=== PATIENT | female | born 1980 | race African-American/Black ===

== ENCOUNTER 2018-07-09 09:15 | Inpatient (IN) | payer OTHER ==
[2018-07-09] MEDS ORDERED: ELECTROLYTE-148 SOLN 500 ML IV SCH (10:46)
[2018-07-09] MEDS ORDERED: ELECTROLYTE-148 SOLN 1,000 ML IV SCH (11:15)
[2018-07-09 11:20] LABS: BASO % 0.4 % (0-2.0); EOS % 1.2 % (0-4.5); HEMATOCRIT 35.1 % (32.4-45.2); HEMOGLOBIN 11.5 GM/dL (10.7-15.3); LYMPH % 28.3 % (8-40); MCH 26.2 pg (25.7-33.7); MCHC 32.8 g/dl (32.0-36.0); MEAN CELL VOLUME 79.9 fl (80-96); MEAN PLT VOLUME 9.4 fl (7.5-11.1); MONO % 7.3 % (3.8-10.2); NEUT % 62.8 % (42.8-82.8); PLATELET COUNT 212 K/MM3 (134-434); RDW 21.7 % (11.6-15.6)
[2018-07-09 11:32] LABS: ANION GAP 9 MMOL/L (8-16); BLOOD UREA NITROGEN 10 mg/dL (7-18); CALCIUM 8.8 mg/dL (8.5-10.1); CHLORIDE 108 mmol/L (98-107); CO2 21 mmol/L (21-32); CREATININE 0.6 mg/dL (0.55-1.3); GLUCOSE,RANDOM 76 mg/dL (74-106); POTASSIUM 4.2 mmol/L (3.5-5.1); SODIUM 138 mmol/L (136-145)
[2018-07-09 11:40] LABS: INR 0.9 (0.83-1.09); PROTHROMBIN TIME (PATIENT) 10.6 SEC (9.7-13.0)
[2018-07-09 11:43] LABS: ACTIVATED PTT 24.9 SECONDS (25.2-36.5)
[2018-07-09 12:15] VITALS: BMI 34.8
[2018-07-09] MEDS ORDERED: CITRIC ACID/SODIUM CITRATE 30 ML UNIT-DOSE CUP PO ONE ×2 (14:45→17:07)
[2018-07-09 15:01] LABS: ANISOCYTOSIS 1+; PLATELET ESTIMATE ADEQUATE
[2018-07-09] MEDS ORDERED: ceFAZolin SODIUM 1 GM VIAL ONE (15:40)
[2018-07-09] MEDS ORDERED: morphine SULFATE/Preservative Free 0.5 MG/ML (1cc Syringe) ONE (15:40)
[2018-07-09] MEDS ORDERED: ePHEDrine SULFATE 50 MG/1 ML AMPULE ONE (16:08)
[2018-07-09] MEDS ORDERED: OXYTOCIN 10 UNITS/ML VIAL ONE (16:20)
[2018-07-09] MEDS ORDERED: ONDANSETRON 4 MG/2 ML VIAL IVPUSH PRN (16:45)
[2018-07-09] MEDS ORDERED: METHYLERGONOVINE MALEATE 0.2 MG/1 ML AMP IM PRN (17:09)
[2018-07-09] MEDS ORDERED: KETOROLAC TROMETHAMINE 30 MG/1 ML VIAL ONE (17:10)
--- NOTE | 2018-07-09 17:13 | OP ---
Operative Note - Note: Operative Date: 07/09/18 Pre-Operative Diagnosis: Oligohydramnios / 36 weeks gestation / IUGR Operation: Repeat Low Transverse Findings: SGA baby in ROT position Post-Operative Diagnosis: Same as Pre-op Surgeon: Christine Hernandez Nfl Player: Erick Crowder Anesthesia: Spinal Specimens Removed: Placenta Estimated Blood Loss (mls): 600
[2018-07-09] MEDS ORDERED: DEXTROSE 5%-LACTATED RINGERS 1,000 ML IV SCH (17:15)
--- NOTE | 2018-07-09 17:17 | SURG ---
Surgery [employer] Officer Note [employer] Officer: Erick Crowder PA-C Date of Service: 07/09/18 Diagnosis: Oligohydramnios / 36 weeks gestation / IUGR Procedure: Repeat Low Transverse I was present for the entirety of the operative procedure. For further detail, please refer to operative report. Visit type - Case Type Case Type: Scheduled - New patient This patient is new to me today: Yes Date on this admission: 07/09/18
--- NOTE | 2018-07-09 17:19 | HP ---
Past Medical History - Admission Chief Complaint: Low amniotic fluid History of Present Illness: 37 yo @ 36 weeks gestation, EDC 08/01/[address] Fang office for delivery due to oligohydramnios and IUGR. She had one previous . Decision made for repeat . History Source: Patient Limitations to Obtaining History: No Limitations - Past Medical History ...: 3 ...Para: 1 ...Term: 1 ...: 0 ...Spon : 1 ...Induced : 0 ...Multiple Gestation: 0 ...EDC by Sono: 08/01/18 - Past Surgical History Past Surgical History: Yes: Hx Myomectomy: No Hx Transabdominal Cerclage: No - Smoking History Smoking history: Never smoked Have you smoked in the past 12 months: No - Alcohol/Substance Use Hx Alcohol Use: No - Social History Usual Living Arrangement: Yes: With Significant Other History of Recent Travel: No Home Medications - Allergies Allergies/Adverse Reactions: Allergies Allergy/AdvReac Type Severity Reaction Status Date / Time No Known Allergies Allergy Verified 07/09/18 09:44 - Home Medications Home Medications: Ambulatory Orders Ferrous Sulfate [Iron] 325 mg PO DAILY 07/09/18 Pnv No.95/Ferrous Fum/Folic AC [ Formula] 1 each PO DAILY 07/09/18 Family Disease History - Family Disease History Family History: Unremarkable Review of Systems - Review of Systems Constitutional: reports: No Symptoms Eyes: reports: No Symptoms HENT: reports: No Symptoms Neck: reports: No Symptoms Cardiovascular: reports: No Symptoms Respiratory: reports: No Symptoms Gastrointestinal: reports: No Symptoms Genitourinary: reports: No Symptoms Breasts: reports: No Symptoms Reported Neurological: reports: No Symptoms Endocrine: reports: No Symptoms Psychiatric: reports: No Symptoms Pain Intensity: 0 Physical Exam - Maternity Vital Signs: Vital Signs Temperature 98.2 F 07/09/18 14:00 Pulse Rate 90 07/09/18 14:00 Respiratory Rate 18 07/09/18 14:00 Blood Pressure 128/76 07/09/18 14:00 O2 Sat by Pulse Oximetry (%) Constitutional: Yes: Well Nourished Eyes: Yes: Conjunctiva Clear HENT: Yes: Atraumatic Neck: Yes: Supple Cardiovascular: Yes: Regular Rate and Rhythm Lungs: Clear to auscultation - Abdominal Exam/OB Number of Fetuses: Single Presentation: Vertex - Physical Exam ...Motor Strength: WNL Psychiatric: Yes: Alert, Oriented - Labs Lab Results: CBC, BMP 07/09/18 10:55 07/09/18 10:55 Problem List - Problems (1) 36 weeks gestation of Code(s): Z3A.36 - 36 WEEKS GESTATION OF (2) Oligohydramnios antepartum Code(s): O41.00X0 - OLIGOHYDRAMNIOS, UNSP TRIMESTER, NOT APPLICABLE OR UNSP (3) IUGR (intrauterine growth restriction) affecting care of mother Code(s): O36.5990 - MATERN CARE FOR OTH OR SUSP POOR FETL GRTH, UNSP TRI, UNSP Qualifiers: Fetus number: single or unspecified fetus Trimester: third trimester Qualified Code(s): O36.5930 - Maternal care for other known or suspected poor growth, third trimester, not applicable or unspecified Assessment/Plan 36 weeks gestation Oligohydramnios IUGR Admit for repeat as recommended by MFM ( Dr. Fang ) Consent signed Anesthesia to see patient
[2018-07-09 17:45] LABS: ARTERIAL BLD GAS O2 SATURATION 9.8 % (90-98.9); ARTERIAL BLOOD GAS BASE EXCESS -14.4 meq/l (-2-2); ARTERIAL BLOOD GAS PCO2 70.1 mmHg (35-45); ARTERIAL BLOOD GAS PO2 14.3 mmHg (80-100); ARTERIAL BLOOD GAS pH 7.05 (7.35-7.45); VENOUS PC02 60.6 mmHg (38-52); VENOUS PH 7.23 (7.32-7.42); VENOUS PO2 15.8 mmHg (28-48)
[2018-07-09] MEDS: OXYTOCIN 20 UNITS in 0.9% NS 20 UNIT/1,000 ML INFUS.BAG IV SCH (21:01)
[2018-07-10] MEDS: OXYTOCIN 20 UNITS in 0.9% NS 20 UNIT/1,000 ML INFUS.BAG IV SCH ×2 (04:45→17:44)
[2018-07-10 09:29] LABS: BASO % 0.3 % (0-2.0); EOS % 0.1 % (0-4.5); HEMATOCRIT 28.7 % (32.4-45.2); HEMOGLOBIN 8.9 GM/dL (10.7-15.3); MCH 25.5 pg (25.7-33.7); MEAN CELL VOLUME 82.2 fl (80-96); MEAN PLT VOLUME 9.4 fl (7.5-11.1); MONO % 7.2 % (3.8-10.2); NEUT % 77.4 % (42.8-82.8); PLATELET COUNT 168 K/MM3 (134-434); RBC 3.49 M/mm3 (3.60-5.2); RDW 21.4 % (11.6-15.6)
[2018-07-10] MEDS ORDERED: DIPHTH,PERTUSS(ACELL),TET 0.5 ML DISP.SYRIN IM ONE (10:00)
--- NOTE | 2018-07-10 10:17 | PN ---
Progress Note (short form) - Note Progress Note: POD #1 - s/p repeat under spinal anesthesia with duramorph. VSS. Pt. doing well, resting comfortably in bed. No complaints. Good pain control. No apparent anesthetic complications noted. Continue current care.
[2018-07-10] MEDS ORDERED: BISACODYL 10 MG SUPP.RECT RC PRN (17:09)
[2018-07-10] MEDS: IBUPROFEN 600 MG TABLET (FP) PO PRN (17:45)
[2018-07-10] MEDS: oxyCODONE HCL 5 MG TABLET PO PRN (17:45)
[2018-07-11] MEDS: oxyCODONE HCL 5 MG TABLET PO PRN ×2 (08:51→16:54)
[2018-07-11] MEDS: IBUPROFEN 600 MG TABLET (FP) PO PRN ×2 (08:51→16:54)
[2018-07-11] MEDS: SIMETHICONE 80 MG TAB.CHEW (FP) PO PRN ×2 (08:52→16:54)
--- NOTE | 2018-07-11 22:17 | PN ---
Progress Note (SOAP) - Subjective Chief Complaint: Pt without comp - Current Medications Current Medications: Active Medications Bisacodyl (Dulcolax Suppository -) 10 mg RC PRN PRN PRN Reason: CONSTIPATION Diphenhydramine HCl (Benadryl Injection -) 25 mg IVPUSH Q4H PRN PRN Reason: Pruritis Last Admin: 07/10/18 06:20 Dose: 25 mg Parenteral Electrolytes (Plasma-Lyte 148 -) 1,000 mls @ 125 mls/hr IV [facility] Last Admin: 07/09/18 12:40 Dose: 125 mls/hr Dextrose/Lactated Ringer's (D5-Lr -) 1,000 mls @ 125 mls/hr IV [facility] Oxytocin/Sodium Chloride (Normal Saline+20 Units Oxytocin -) 20 unit in 1,000 mls @ 125 mls/hr IV [facility] Last Admin: 07/10/18 17:44 Dose: Not Given Ibuprofen (Motrin -) 600 mg PO Q4H PRN PRN Reason: PAIN LEVEL 1 - 3 Last Admin: 07/11/18 16:54 Dose: 600 mg Methylergonovine Maleate (Methergine Injection -) 0.2 mg IM Q4H PRN PRN Reason: Excessive Bleeding (L&D) Ondansetron HCl (Zofran Injection) 4 mg IVPUSH Q4H PRN PRN Reason: NAUSEA Oxycodone HCl (Roxicodone -) 5 mg PO Q4H PRN PRN Reason: PAIN LEVEL 4 - 6 Last Admin: 07/11/18 16:54 Dose: 5 mg Simethicone (Mylicon -) 80 mg PO Q4H PRN PRN Reason: GAS Last Admin: 07/11/18 16:54 Dose: 80 mg - Objective Vital Signs: Vital Signs Temperature 98 F 07/11/18 10:00 Pulse Rate 105 H 07/11/18 10:00 Respiratory Rate 20 07/11/18 10:00 Blood Pressure 127/75 07/11/18 10:00 O2 Sat by Pulse Oximetry (%) 98 07/09/18 18:45 Constitutional: Yes: Well Nourished, No Distress Gastrointestinal: Yes: WNL, Normal Bowel Sounds, Soft ....Post : Yes: Uterus firm, Uterus non-tender Breast(s): Yes: WNL Musculoskeletal: Yes: WNL Extremities: Yes: WNL Edema: No Wound/Incision: Yes: Open to air Labs Lab Results: CBC, BMP 07/10/18 07:45 07/09/18 10:55 Assessment/Plan SP CS POD2 Plan Continue present management
--- NOTE | 2018-07-12 06:57 | DS ---
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 Vital Signs: Vital Signs Temperature 98.3 F 07/11/18 21:00 Pulse Rate 93 H 07/11/18 21:00 Respiratory Rate 20 07/11/18 21:00 Blood Pressure 127/80 07/11/18 21:00 O2 Sat by Pulse Oximetry (%) 98 07/09/18 18:45 Constitutional: Yes: Well Nourished, No Distress Gastrointestinal: Yes: WNL, Normal Bowel Sounds, Soft ....Post : Yes: Uterus firm, Uterus non-tender Breast(s): Yes: WNL Musculoskeletal: Yes: WNL Extremities: Yes: WNL Edema: No Wound/Incision: Yes: Clean/Dry, Open to air, Dressing Dry and Intact Neurological: Yes: WNL, Alert, Oriented Labs: CBC, BMP 07/10/18 07:45 07/09/18 10:55 Delivery - Delivery Type of Anesthesia: Spinal Episiotomy/Laceration: None EBL (cc): 600 Delivery, Single - Stages of Labor Date of Delivery: 07/09/18 Time of Delivery: 16:28 Time Placenta Delivered: 16:29 - Condition of Infant Carpenter Supervisor Wooden Ship/Payroll Human Resources Assistant Present: Yes Name: Jean Marie Perez Infant Gender: Female Weight: 4 lb 11 oz Position: Right, OT Total Hours ROM (Hrs/Mins): 8mins - 1 Minute Total Score: 3 5 Minutes Total Score: 9 - Feeding Plan Initial Plan: Elected not to breastfeed exclusively throughout hospitalization Discharge Summary Reason For Visit: Current Active Problems 36 weeks gestation of (Acute) IUGR (intrauterine growth restriction) affecting care of mother (Acute) Oligohydramnios antepartum (Acute) Procedures: Principal: Section Hospital Course: UNremarkable Condition: Good - Instructions Diet, Activity, Other Instructions: Physical activity Resume your normal everyday activity as tolerated no heavy lifting or exercise until seen by your surgeon. You may walk unlimited jeanette of and climb stairs. You may resume driving the car when you feel safe and comfortable behind the wheel. No sexual activity as instructed. Wound care If you have a bandage, leave it on, and keep dry for 48-72 hours. After that time discard the outer bandage. If they are tapes on the skin under the out of bandage leave them in place. They will peel off in the next 7 to 10 days. Do Not Peel them off. You may shower the day after surgery. If there are tapes present on the skin, you may shower over them. Diet There are no dietary restrictions. Eat healthy, high-fiber foods. Drink 6 to 8 glasses of liquid each day. This will assist in keeping your bowels are regular. Pain management You may take Tylenol or acetaminophen or Ibuprofen (for example, Motrin, Advil etc.) from my pain prescription medication is ordered should be taken as prescribed for moderate to severe pain. Call MD for any of the following: Severe pain not relieved by medication Fever of 101 or higher Excessive bleeding or drainage on dressing Inability to urinate Disposition: HOME - Home Medications Comprehensive Discharge Medication List: Ambulatory Orders Ferrous Sulfate [Iron] 325 mg PO DAILY 07/09/18 Pnv No.95/Ferrous Fum/Folic AC [ Formula] 1 each PO DAILY 07/09/18
[2018-07-12 07:25] LABS: BASO % 0.7 % (0-2.0); EOS % 2.1 % (0-4.5); HEMATOCRIT 23.7 % (32.4-45.2); HEMOGLOBIN 7.5 GM/dL (10.7-15.3); LYMPH % 18.9 % (8-40); MCH 25.6 pg (25.7-33.7); MCHC 31.7 g/dl (32.0-36.0); MEAN CELL VOLUME 80.8 fl (80-96); MEAN PLT VOLUME 9.1 fl (7.5-11.1); MONO % 7.6 % (3.8-10.2); NEUT % 70.7 % (42.8-82.8); PLATELET COUNT 164 K/MM3 (134-434); RBC 2.94 M/mm3 (3.60-5.2); RDW 21.1 % (11.6-15.6); WHITE BLOOD COUNT 8.3 K/mm3 (4.0-10.0)
[2018-07-12] MEDS: IBUPROFEN 600 MG TABLET (FP) PO PRN ×3 (07:33→19:36)
[2018-07-12] MEDS: oxyCODONE HCL 5 MG TABLET PO PRN ×2 (07:33→12:51)
[2018-07-12] MEDS: SIMETHICONE 80 MG TAB.CHEW (FP) PO PRN ×3 (07:33→19:36)
[2018-07-13] MEDS: SIMETHICONE 80 MG TAB.CHEW (FP) PO PRN ×2 (02:50→09:51)
[2018-07-13] MEDS: IBUPROFEN 600 MG TABLET (FP) PO PRN ×2 (02:51→09:51)
[2018-07-13 10:51] VITALS: BP 142/90; PULSE 70; TEMP 97.9
--- NOTE | 2018-07-14 22:49 | OP ---
DATE OF OPERATION: 07/09/2018 PREOPERATIVE DIAGNOSIS: 36 weeks' gestation with intrauterine growth deficiency and oligohydramnios. POSTOPERATIVE DIAGNOSIS: 36 weeks' gestation with intrauterine growth deficiency and oligohydramnios. PROCEDURE: Repeat low transverse section. SURGEON: Christine Hernandez M.D. DRAMATIC CRITIC: Sixto Stearns ANESTHESIA: Spinal. COMPLICATIONS: Fibroid uterus. ESTIMATED BLOOD LOSS: 600 mL. PROCEDURE: Patient was taken to the operating room where spinal anesthesia was administered. Patient was then prepped and draped in proper sterile fashion. A Pfannenstiel skin incision was made and carried down to the underlying layer of fascia. Fascia was incised in the midline and extended laterally. The superior aspect of the fascial incision was then grasped with a Susy clamp, elevated, and the rectus muscle dissected off bluntly. Attention was then turned to the inferior aspect of the fascial incision, which in a similar fashion was then grasped with Susy clamp, elevated, and the rectus muscle dissected off bluntly. The rectus muscle was then in the midline, the peritoneum identified and entered sharply with the Metzenbaum scissors. The peritoneal incision was extended superiorly and inferiorly with good visualization of the bladder. Then the vesicouterine peritoneum was then grasped with a pickup, and entered sharply with Metzenbaum scissors. This incision was extended laterally. Then the attempt to deliver the fetus, there were several attempts to deliver the fetus due to leiomyoma of the uterus which explained the intrauterine growth retardation. After several attempts, the head was finally delivered. Then the fetus was immediately handed to the waiting sample display preparer. The placenta was removed manually. The uterus was then cleared of all clots and debris, the uterine incision was repaired with 0 Biosyn in a running locked fashion. The second layer of the same suture was used as a means to provide excellent hemostasis. Then the pelvis was irrigated, the peritoneum was closed using 2-0 Biosyn. The fascia was reapproximated using 0 Vicryl in a running fashion. The skin was closed in a subcuticular fashion using 3-0 Vicryl. Patient tolerated procedure well. Patient was then taken to PACU in stable condition. Pathology, placenta. CHRISTINE HERNANDEZ M.D. [id number]
--- NOTE | 2018-07-16 19:32 | PATH ---
Surgical Pathology Report Patient Name: DAVID RIVAS Med. Rec. 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 Specimen(s) Received PLACENTA Clinical History 36.5 weeks, , oligohydramnios, IUGR Final Diagnosis PLACENTA, SECTION: 346 G THIRD TRIMESTER PLACENTA WITH TWO-VESSEL UMBILICAL CORD AND FOCAL MILD ACUTE CHORIOAMNIONITIS. Electronically Signed Elisabeth Medina M.D. Gross Description The specimen is received fresh labeled placenta and is a 346 gram, 17.0 x 14.5 x 2.5 cm. placenta with attached membranes and umbilical cord. The attached membranes are cote, thick, cloudy and insert marginally. The umbilical cord measures 30 cm. in length and averages 0.7 cm. in diameter. The cord inserts eccentrically, 1 cm. to the nearest margin. No true knots or strictures are identified. Cut surface of the umbilical cord reveals only 2 vessels. The surface is bean blue with abundant fibrin deposition and appropriate caliber vessels. The maternal surface is red-brown with focal defects. Sectioning reveals red-brown, spongy parenchyma. No lesions are identified. Support Teacher sections are submitted in three cassettes as follows: 1- membrane rolls and umbilical cord; 2-3- full thickness sections of placenta. 07/15/201807/15/2018
== END 2018-07-13 13:25 | disposition home or self-care (01) | DRG 788 ==
LOC: JDEL 09:15 → JLDR 10:46 → J3W 19:35
PROVIDERS: ADMIT Obstetrics & Gynecology; ATTEND Obstetrics & Gynecology
PROC: 10D00Z1 Extraction of Products of Conception, Low, Open Approach (ICD-10-PCS; principal; 2018-07-09)
DX: O41.03X0 Oligohydramnios, third trimester, not applicable or unspecified (principal); O36.5930 Maternal care for other known or suspected poor fetal growth, third trimester, not applicable or unspecified; Z3A.38 38 weeks gestation of pregnancy; Z37.0 Single live birth
CPT/HCPCS: 36415; 36600; 59025; 80048; 82803; 85025; 85610; 85730; 86593; 86850; 86900; 86901; 88307-TC; 90715

== ENCOUNTER 2023-08-13 09:16 | Day surgery (SDC) | payer BC ==
[~2023-08-13 09:16] MED LIST: IRON DEXTRAN COMPLEX 1,000 MG in SODIUM CHLORIDE 250 ML IVPB ONE
[2023-08-13] MEDS ORDERED: IRON DEXTRAN COMPLEX 1,000 MG in SODIUM CHLORIDE 250 ML IVPB ONE (10:00)
[2023-08-13 16:15] VITALS: BP 114/77; PULSE 79; RESP 18; TEMP 98.6
== END 2023-08-13 11:45 | disposition home or self-care (01) ==
LOC: J7W 09:16 → JONCNONCHE 09:16
PROVIDERS: ATTEND Internal Medicine Hematology & Oncology
PROC: 3E033GC Introduction of Other Therapeutic Substance into Peripheral Vein, Percutaneous Approach (ICD-10-PCS; principal; 2023-08-13)
DX: D50.9 Iron deficiency anemia, unspecified (principal)
CPT/HCPCS: 96365; J1750

== ENCOUNTER 2023-12-25 11:22 | Day surgery (SDC) | payer BC ==
[2023-12-25] MEDS: IRON DEXTRAN COMPLEX 1,000 MG in SODIUM CHLORIDE 250 ML IVPB ONE (12:43)
[2023-12-25 15:57] VITALS: RESP 18; TEMP 98.5
[2023-12-25 16:09] VITALS: BP 105/74; PULSE 82
== END 2023-12-25 14:15 | disposition home or self-care (01) ==
LOC: JONCNONCHE 11:22 → J7W 11:22 → JONCNONCHE 14:15
PROVIDERS: ATTEND Internal Medicine Hematology & Oncology
PROC: 3E033GC Introduction of Other Therapeutic Substance into Peripheral Vein, Percutaneous Approach (ICD-10-PCS; principal; 2023-12-25)
DX: E61.1 Iron deficiency (principal)
CPT/HCPCS: 96365; J1750

== ENCOUNTER 2024-06-13 09:20 | Day surgery (SDC) | payer BC ==
[2024-06-13] MEDS: IRON DEXTRAN COMPLEX 1,000 MG in SODIUM CHLORIDE 250 ML IVPB ONE (10:16)
[2024-06-13 16:20] VITALS: BP 116/76; PULSE 82; RESP 18; TEMP 98.2
== END 2024-06-13 11:55 | disposition home or self-care (01) ==
LOC: J7W 09:20 → JONCNONCHE 09:20
PROVIDERS: ATTEND Internal Medicine Hematology & Oncology
PROC: 3E033GC Introduction of Other Therapeutic Substance into Peripheral Vein, Percutaneous Approach (ICD-10-PCS; principal; 2024-06-13)
DX: D50.9 Iron deficiency anemia, unspecified (principal)
CPT/HCPCS: 96365; J1750